=== PATIENT | female | born 1960 | race Caucasian/White ===

== ENCOUNTER 2022-02-23 19:11 | Emergency (ER) | payer OTHER, MEDICARE, MEDICAID ==
[2022-02-23] MEDS ORDERED: HYDROmorphone 1 MG/ML Syringe IVPUSH ONE (20:43)
[2022-02-23] MEDS ORDERED: Propofol 200 MG/20 ML SDV ONE (22:16)
== END 2022-02-23 22:45 | disposition home or self-care (01) ==
LOC: JP.ED 19:11
DX: S43.014A Anterior dislocation of right humerus, initial encounter (principal); Z88.5 Allergy status to narcotic agent; Z79.899 Other long term (current) drug therapy; V29.9XXA Motorcycle rider (driver) (passenger) injured in unspecified traffic accident, initial encounter; Y92.410 Unspecified street and highway as the place of occurrence of the external cause
CPT/HCPCS: 23650; 73020; 73030; 96374; 99283; J1170; J2704